=== PATIENT | male | born 1980 | race Caucasian/White ===

== ENCOUNTER 2017-11-28 21:20 | Emergency (ER) | payer SELFPAY ==
[2017-11-28 21:27] VITALS: BP 136/80; BMI 26.6
[2017-11-28] MEDS ORDERED: TORADOL 60 MG VIAL IM ONE (21:47)
--- NOTE | 2017-11-28 21:48 | DR.GENAD ---
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 There is no trauma. Chief Complaint:: PAIN IN SIDE UNDER RIBS X1 WEEK WHICH HAS GRADUALLY BECAME WORSE Self Treatment fo Chief Complaint: TOOK ADVIL FOR PAIN - Source History Provided: Patient - Mode of Arrival Mode of Arrival: Ambulatory - Timing Onset of Chief Complaint: 11/21/17 PMH - PMH Past Medical History: Yes Past Medical History: Anxiety, Hypertension, Kidney Stones Past Surgical History: Yes Surgical History: Appendectomy, Ortho Surgery - Family History History of Family Medical Conditions: Yes Family Medical History: Hypertension - Social History Does patient currently use any type of tobacco product: Yes Have you used tobacco products in the last 12 months: Yes Type of Tobacco Use: Cigarettes Does any household member use tobacco: Yes Alcohol Use: None Do you use any recreational Drugs:: No Lives With: Family Lives Where: Home - infectious screening In the last 2 months have you had wt loss of >10#?: NO Have you had fever, night sweats or hemotysis?: No Have you traveled outside the country in the last 6 months?: No Isolation: Standard ROS - Review of Systems Eyes: No Symptoms Reported ENTM: No Symptoms Reported Respiratoy: No Symptoms Reported Cardiovascular: No Symptoms Reported Gastrointestinal/Abdominal: No Symptoms Reported Genitourinary: No Symptoms Reported Neurological: No Symptoms Reported Musculoskeletal: Back Pain (upper right scapula) Integumentary: No Symptoms Reported Hematologic/Lymphatic: No Symptoms Reported Endocrine: No Symptoms Reported Psychiatric: No Symptoms Reported All Other Systems: Reviewed and Negative PE - Vital Signs Vitals: Temperature 98.6 F Pulse Rate 97 Respiratory Rate 20 Blood Pressure 136/80 O2 Sat by Pulse Oximetry 98 - General Limitations: No Limitations General Appearance: Alert, In No Apparent Distress - Head Head Exam: Normal Inspection, Atraumatic - Eyes Eye exam: Normal Appearance, PERRL, EOMI - ENT ENT Exam: Normal Exam External Ear Exam: Normal External Inspection TM/Canal Exam: Bilateral Normal Nose Exam: Normal Nose Exam Mouth Exam: Normal Inspection Throat Exam: Normal Inspection - Neck Neck Exam: Normal Inspection - Chest Chest Inspection: Normal Inspection - Respiratory Respiratory Exam: Normal Lung Sounds Bilat Respiratory Exam: Bilateral Clear to Auscultation - Cardiovascular Cardiovascular Exam: Regular Rate, Normal Rhythm - Abdominal Exam Abdominal Exam: Normal Inspection Abdominal Tenderness: negative: RUQ, RLQ, LUQ, LLQ, Epigastrium, Suprapubic, Diffuse, Mild, Moderate, Severe, Other - Extremities Extremities Exam: Normal Inspection, Full ROM - Back Back Exam: Normal Inspection, Full ROM - Neurologic Neurological Exam: Alert, Oriented X3, CN II-XII Intact - Psychiatric Psychiatric Exam: Normal Affect - Skin Skin Exam: Warm, Dry, Intact Course - Education/Counseling Educated On: Treatment, Diagnosis, Prognosis - Diagnosis Discharge Problem: Muscular pain - Discharge Plan Condition: Stable - Follow ups/Referrals Follow ups/Referrals: NFD,None [Primary Care Provider] - 3 days - Instructions
[2017-11-28] MEDS ORDERED: TORADOL 60 MG VIAL ONE (21:49)
== END 2017-11-28 21:54 | disposition home or self-care (01) ==
LOC: ER 21:32
DX: M79.1 Myalgia (principal)
CPT/HCPCS: 96372; 99282; J1885